=== PATIENT | male | born 1985 | race Caucasian/White ===

== ENCOUNTER 2021-09-22 20:53 | Emergency (ER) | payer BC ==
[~2021-09-22] VITALS: Ht 177.8 cm; Wt 150.0 kg
[2021-09-22 21:01] VITALS: BP 144/90
== END 2021-09-22 22:45 | disposition left against medical advice (07) ==
LOC: ER 20:53
DX: Z53.21 Procedure and treatment not carried out due to patient leaving prior to being seen by health care provider (principal)